=== PATIENT | male | born 1970 | race Caucasian/White ===

== ENCOUNTER 2018-06-26 21:37 | Inpatient (IN) | payer OTHER ==
[2018-06-26] MEDS ORDERED: NACL 0.9% 3 ML SYG IV (23:30)
[2018-06-26] MEDS ORDERED: ONDANSETRON 4 MG INJ IV (23:30)
[2018-06-27] MEDS: SOD CHLORIDE 0.9% 1,000 ML IV ×3 (00:18→20:59)
[2018-06-27] MEDS ORDERED: LORAZEPAM 2 MG INJ IV (00:30)
[2018-06-27 01:08] LABS: ADD MAN DIFF? NO
[2018-06-27 01:11] LABS: BASOPHILS % 0.4 % (0.0-2.0); EOSINOPHILS # 0.2 10^3/ul (0.0-0.5); EOSINOPHILS % 1.9 % (0.0-7.0); HEMOGLOBIN 12.3 g/dl (14.0-18.0); LYMPHOCYTES # 1.8 10^3/ul (0.8-2.9); LYMPHOCYTES % 19.3 % (15.0-51.0); MEAN CORPUSCULAR HEMOGLOBIN 28.9 pg (29.0-33.0); MEAN CORPUSCULAR HGB CONC 33.2 g/dl (32.0-37.0); MEAN CORPUSCULAR VOLUME 87.1 fl (82.0-101.0); MEAN PLATELET VOLUME 9.5 fl (7.4-10.4); MONOCYTE # 1.3 10^3/ul (0.3-0.9); MONOCYTES % 13.5 % (0.0-11.0); NEUTROPHIL # 6.1 10^3/ul (1.6-7.5); NEUTROPHILS % 64.6 % (39.0-77.0); PLATELET COUNT 243 10^3/UL (140-415); RED BLOOD COUNT 4.25 10^6/ul (4.70-6.10); RED CELL DISTRIBUTION WIDTH 14.1 % (11.5-14.5)
[2018-06-27 01:11] LABS: WHITE BLOOD COUNT 9.4 10^3/ul (4.8-10.8)
[2018-06-27 01:26] LABS: HEMOGLOBIN A1C 5.1 % (0-5.9)
[2018-06-27 01:27] LABS: LACTIC ACID 0.8 mmol/L (0.5-2.0)
[2018-06-27 01:29] LABS: ALANINE AMINOTRANSFERASE 42 IU/L (13-69); ALBUMIN 4.6 g/dl (3.3-4.9); ALBUMIN/GLOBULIN RATIO 1.53; ALKALINE PHOSPHATASE 85 IU/L (42-121); ANION GAP 12 (5-13); ASPARTATE AMINO TRANSFERASE 59 IU/L (15-46); BILIRUBIN,INDIRECT 0.7 mg/dl (0-1.1); BILIRUBIN,TOTAL 0.7 mg/dl (0.2-1.3); BLOOD UREA NITROGEN 11 mg/dl (7-20); CALCIUM 9.6 mg/dl (8.4-10.2); CARBON DIOXIDE 25 mmol/L (21-31); CHLORIDE 102 mmol/L (97-110); CREATININE 0.51 mg/dl (0.61-1.24); Estimated GFR > 60 mL/min (>60); GLUCOSE 98 mg/dl (70-220); POTASSIUM 4.1 mmol/L (3.5-5.1); SODIUM 139 mmol/L (135-144); TOTAL PROTEIN 7.6 g/dl (6.1-8.1)
[2018-06-27] MEDS ORDERED: HEPARIN 5,000 UNIT/0.5 ML VIAL ×3 (03:08→20:34)
[2018-06-27] MEDS: NICOTINE (14 MG/24 HR) PATCH TRANSDERM ×2 (03:19→08:23)
[2018-06-27] MEDS: CHLORDIAZEPOXIDE 25 MG CAP PO ×4 (03:21→20:59)
[2018-06-27] MEDS: THIAMINE 200 MG INJ IM ×2 (03:21→08:22)
[2018-06-27] MEDS: HEPARIN 5,000 UNIT/1 ML VIAL SC ×4 (03:27→21:05)
[2018-06-27 03:43] LABS: LACTIC ACID 0.9 mmol/L (0.5-2.0)
[2018-06-27 05:51] LABS: ADD MAN DIFF? NO
[2018-06-27 06:04] LABS: BASOPHIL # 0.1 10^3/ul (0.0-0.1); BASOPHILS % 0.7 % (0.0-2.0); EOSINOPHILS # 0.1 10^3/ul (0.0-0.5); EOSINOPHILS % 1.7 % (0.0-7.0); HEMATOCRIT 38.6 % (42.0-52.0); HEMOGLOBIN 12.7 g/dl (14.0-18.0); LYMPHOCYTES # 1.7 10^3/ul (0.8-2.9); LYMPHOCYTES % 19.8 % (15.0-51.0); MEAN CORPUSCULAR HEMOGLOBIN 28.9 pg (29.0-33.0); MEAN CORPUSCULAR HGB CONC 32.9 g/dl (32.0-37.0); MEAN CORPUSCULAR VOLUME 87.7 fl (82.0-101.0); MEAN PLATELET VOLUME 10.2 fl (7.4-10.4); MONOCYTE # 1.2 10^3/ul (0.3-0.9); MONOCYTES % 13.9 % (0.0-11.0); NEUTROPHIL # 5.4 10^3/ul (1.6-7.5); NEUTROPHILS % 63.8 % (39.0-77.0); PLATELET COUNT 263 10^3/UL (140-415); RED CELL DISTRIBUTION WIDTH 14.2 % (11.5-14.5)
[2018-06-27 06:04] LABS: WHITE BLOOD COUNT 8.4 10^3/ul (4.8-10.8)
[2018-06-27 06:45] LABS: ALANINE AMINOTRANSFERASE 37 IU/L (13-69); ALBUMIN 4.7 g/dl (3.3-4.9); ALBUMIN/GLOBULIN RATIO 1.62; ALKALINE PHOSPHATASE 90 IU/L (42-121); ANION GAP 13 (5-13); ASPARTATE AMINO TRANSFERASE 66 IU/L (15-46); BILIRUBIN,INDIRECT 0.8 mg/dl (0-1.1); BILIRUBIN,TOTAL 0.8 mg/dl (0.2-1.3); BLOOD UREA NITROGEN 11 mg/dl (7-20); CALCIUM 9.7 mg/dl (8.4-10.2); CARBON DIOXIDE 26 mmol/L (21-31); CHLORIDE 103 mmol/L (97-110); CREATININE 0.54 mg/dl (0.61-1.24); Estimated GFR > 60 mL/min (>60); GLUCOSE 91 mg/dl (70-220); POTASSIUM 4.4 mmol/L (3.5-5.1); SODIUM 142 mmol/L (135-144); TOTAL PROTEIN 7.6 g/dl (6.1-8.1)
[2018-06-27] MEDS: ACETAMINOPHEN 325 MG TAB PO (09:46)
[2018-06-27] MEDS: SOD CHLORIDE 0.9% 100 ML (14:01)
[2018-06-27] MEDS: IOHEXOL 300MG/ML 150 ML BTL (14:02)
[2018-06-27] MEDS: FOLIC ACID 1 MG TAB PO (14:27)
[2018-06-27] MEDS: PIPER-TAZO 3.375 GM IV (PMX) 100 ML IVPB ×2 (14:27→20:59)
[2018-06-28] MEDS: CHLORDIAZEPOXIDE 25 MG CAP PO ×5 (00:07→21:50)
[2018-06-28 05:05] LABS: ADD MAN DIFF? NO
[2018-06-28 05:08] LABS: BASOPHIL # 0.1 10^3/ul (0.0-0.1); BASOPHILS % 0.5 % (0.0-2.0); EOSINOPHILS # 0.2 10^3/ul (0.0-0.5); EOSINOPHILS % 1.2 % (0.0-7.0); HEMATOCRIT 38.7 % (42.0-52.0); HEMOGLOBIN 12.5 g/dl (14.0-18.0); LYMPHOCYTES # 1.8 10^3/ul (0.8-2.9); LYMPHOCYTES % 13.8 % (15.0-51.0); MEAN CORPUSCULAR HEMOGLOBIN 28.7 pg (29.0-33.0); MEAN CORPUSCULAR HGB CONC 32.3 g/dl (32.0-37.0); MEAN PLATELET VOLUME 9.9 fl (7.4-10.4); MONOCYTE # 1.1 10^3/ul (0.3-0.9); MONOCYTES % 8.4 % (0.0-11.0); NEUTROPHIL # 9.7 10^3/ul (1.6-7.5); NEUTROPHILS % 75.7 % (39.0-77.0); PLATELET COUNT 253 10^3/UL (140-415); RED BLOOD COUNT 4.35 10^6/ul (4.70-6.10)
[2018-06-28 05:08] LABS: WHITE BLOOD COUNT 12.8 10^3/ul (4.8-10.8)
[2018-06-28] MEDS ORDERED: HEPARIN 5,000 UNIT/0.5 ML VIAL ×3 (05:26→21:44)
[2018-06-28] MEDS: PIPER-TAZO 3.375 GM IV (PMX) 100 ML IVPB ×3 (05:40→21:50)
[2018-06-28 05:48] LABS: ANION GAP 10 (5-13); BLOOD UREA NITROGEN 5 mg/dl (7-20); CALCIUM 9.1 mg/dl (8.4-10.2); CARBON DIOXIDE 28 mmol/L (21-31); CHLORIDE 103 mmol/L (97-110); Estimated GFR > 60 mL/min (>60); GLUCOSE 101 mg/dl (70-220); POTASSIUM 3.8 mmol/L (3.5-5.1); SODIUM 141 mmol/L (135-144)
[2018-06-28] MEDS: HEPARIN 5,000 UNIT/1 ML VIAL SC ×3 (05:54→21:51)
[2018-06-28] MEDS: SOD CHLORIDE 0.9% 1,000 ML IV ×2 (06:21→15:24)
[2018-06-28] MEDS: FOLIC ACID 1 MG TAB PO (08:29)
[2018-06-28] MEDS: NICOTINE (14 MG/24 HR) PATCH TRANSDERM (08:30)
[2018-06-28] MEDS: THIAMINE 200 MG INJ IM (10:07)
[2018-06-29] MEDS ORDERED: CHLORDIAZEPOXIDE 25 MG CAP PO (00:30)
[2018-06-29] MEDS: SOD CHLORIDE 0.9% 1,000 ML IV ×3 (02:44→21:26)
[2018-06-29] MEDS ORDERED: HEPARIN 5,000 UNIT/0.5 ML VIAL ×3 (05:12→21:14)
[2018-06-29] MEDS: PIPER-TAZO 3.375 GM IV (PMX) 100 ML IVPB ×3 (05:29→21:26)
[2018-06-29] MEDS: HEPARIN 5,000 UNIT/1 ML VIAL SC ×3 (05:40→21:37)
[2018-06-29] MEDS: FOLIC ACID 1 MG TAB PO (08:34)
[2018-06-29] MEDS: CHLORDIAZEPOXIDE 25 MG CAP PO ×3 (08:34→21:26)
[2018-06-29] MEDS: NICOTINE (14 MG/24 HR) PATCH TRANSDERM (08:34)
[2018-06-29] MEDS: THIAMINE 200 MG INJ IM (10:00)
[2018-06-30] MEDS: morphine 2 MG INJ IV (01:43)
[2018-06-30] MEDS ORDERED: HEPARIN 5,000 UNIT/0.5 ML VIAL ×3 (05:01→21:08)
[2018-06-30] MEDS: PIPER-TAZO 3.375 GM IV (PMX) 100 ML IVPB ×3 (05:31→21:22)
[2018-06-30] MEDS: HEPARIN 5,000 UNIT/1 ML VIAL SC ×3 (05:55→21:24)
[2018-06-30] MEDS: SOD CHLORIDE 0.9% 1,000 ML IV ×3 (06:25→19:02)
[2018-06-30] MEDS: FOLIC ACID 1 MG TAB PO (09:54)
[2018-06-30] MEDS: NICOTINE (14 MG/24 HR) PATCH TRANSDERM (09:54)
[2018-06-30] MEDS: ACETAMINOPHEN 325 MG TAB PO ×2 (09:58→21:29)
[2018-06-30] MEDS: THIAMINE 200 MG INJ IM (12:20)
[2018-07-01] MEDS: SOD CHLORIDE 0.9% 1,000 ML IV ×4 (03:14→23:08)
[2018-07-01] MEDS ORDERED: HEPARIN 5,000 UNIT/0.5 ML VIAL (05:16)
[2018-07-01] MEDS: PIPER-TAZO 3.375 GM IV (PMX) 100 ML IVPB ×3 (05:29→21:21)
[2018-07-01] MEDS: HEPARIN 5,000 UNIT/1 ML VIAL SC (05:31)
[2018-07-01 05:32] LABS: ADD MAN DIFF? NO
[2018-07-01 05:51] LABS: BASOPHIL # 0.1 10^3/ul (0.0-0.1); BASOPHILS % 0.7 % (0.0-2.0); EOSINOPHILS # 0.2 10^3/ul (0.0-0.5); EOSINOPHILS % 2.1 % (0.0-7.0); HEMATOCRIT 37.5 % (42.0-52.0); HEMOGLOBIN 11.9 g/dl (14.0-18.0); LYMPHOCYTES # 1.7 10^3/ul (0.8-2.9); LYMPHOCYTES % 21.7 % (15.0-51.0); MEAN CORPUSCULAR HEMOGLOBIN 28.7 pg (29.0-33.0); MEAN CORPUSCULAR HGB CONC 31.7 g/dl (32.0-37.0); MEAN CORPUSCULAR VOLUME 90.4 fl (82.0-101.0); MEAN PLATELET VOLUME 10.4 fl (7.4-10.4); MONOCYTE # 1.2 10^3/ul (0.3-0.9); MONOCYTES % 16.1 % (0.0-11.0); NEUTROPHIL # 4.5 10^3/ul (1.6-7.5); PLATELET COUNT 268 10^3/UL (140-415); RED BLOOD COUNT 4.15 10^6/ul (4.70-6.10); RED CELL DISTRIBUTION WIDTH 14.1 % (11.5-14.5)
[2018-07-01 05:51] LABS: WHITE BLOOD COUNT 7.6 10^3/ul (4.8-10.8)
[2018-07-01 06:41] LABS: Estimated GFR > 60 mL/min (>60)
[2018-07-01 07:03] LABS: ANION GAP 7 (5-13); BLOOD UREA NITROGEN 10 mg/dl (7-20); CALCIUM 9.4 mg/dl (8.4-10.2); CARBON DIOXIDE 29 mmol/L (21-31); CHLORIDE 106 mmol/L (97-110); CREATININE 0.68 mg/dl (0.61-1.24); GLUCOSE 96 mg/dl (70-220); POTASSIUM 4.9 mmol/L (3.5-5.1); SODIUM 142 mmol/L (135-144)
[2018-07-01] MEDS: FOLIC ACID 1 MG TAB PO ×2 (08:32→09:19)
[2018-07-01 09:17] LABS: INR 0.98; PROTIME 13.1 Sec (11.9-14.9)
[2018-07-01 09:19] LABS: PARTIAL THROMBOPLASTIN TIME 45.1 Sec (23.0-35.0)
[2018-07-01] MEDS: NICOTINE (14 MG/24 HR) PATCH TRANSDERM (09:19)
[2018-07-01] MEDS: THIAMINE 200 MG INJ IM (10:29)
[2018-07-01] MEDS: ACETAMINOPHEN 325 MG TAB PO ×2 (14:02→20:39)
[2018-07-02] MEDS: PIPER-TAZO 3.375 GM IV (PMX) 100 ML IVPB ×3 (05:41→21:55)
[2018-07-02] MEDS: FOLIC ACID 1 MG TAB PO (08:41)
[2018-07-02] MEDS: NICOTINE (14 MG/24 HR) PATCH TRANSDERM (08:41)
[2018-07-02] MEDS: SOD CHLORIDE 0.9% 1,000 ML IV ×2 (08:42→19:30)
[2018-07-02] MEDS: ARTIFICIAL TEARS 15 ML OPH BOTH EYES ×2 (14:36→20:44)
[2018-07-02] MEDS: ACETAMINOPHEN 325 MG TAB PO (20:43)
[2018-07-03] MEDS: SOD CHLORIDE 0.9% 1,000 ML IV ×3 (05:03→17:33)
[2018-07-03] MEDS: PIPER-TAZO 3.375 GM IV (PMX) 100 ML IVPB (05:31)
[2018-07-03] MEDS: morphine LIQ (10 MG/5 ML) CUP PO ×2 (05:34→19:46)
[2018-07-03] MEDS: FOLIC ACID 1 MG TAB PO (08:13)
[2018-07-03] MEDS: ARTIFICIAL TEARS 15 ML OPH BOTH EYES ×3 (08:13→19:46)
[2018-07-03] MEDS: NICOTINE (14 MG/24 HR) PATCH TRANSDERM (08:13)
[2018-07-03] MEDS ORDERED: NEOMYC/POLYMYX/BACIT/HC 15 GM OINT TOP (14:00)
[2018-07-03] MEDS: NEOMYCIN TOP ×2 (15:09→19:47)
[2018-07-03] MEDS: POLYMYXIN B TOP ×2 (15:09→19:47)
[2018-07-03] MEDS: HYDROCORTISONE TOP ×2 (15:09→19:47)
[2018-07-04] MEDS: SOD CHLORIDE 0.9% 1,000 ML IV ×3 (02:36→21:28)
[2018-07-04] MEDS: POLYMYXIN B TOP ×2 (08:48→21:22)
[2018-07-04] MEDS: HYDROCORTISONE TOP ×2 (08:48→21:22)
[2018-07-04] MEDS: NEOMYCIN TOP ×2 (08:48→21:22)
[2018-07-04] MEDS: NICOTINE (14 MG/24 HR) PATCH TRANSDERM (08:49)
[2018-07-04] MEDS: FOLIC ACID 1 MG TAB PO (08:49)
[2018-07-04] MEDS: ARTIFICIAL TEARS 15 ML OPH BOTH EYES ×3 (08:49→21:22)
[2018-07-04] MEDS: morphine LIQ (10 MG/5 ML) CUP PO (10:27)
[2018-07-05] MEDS: SOD CHLORIDE 0.9% 1,000 ML IV ×3 (07:24→20:56)
[2018-07-05] MEDS: ARTIFICIAL TEARS 15 ML OPH BOTH EYES ×4 (08:19→20:30)
[2018-07-05] MEDS: FOLIC ACID 1 MG TAB PO (08:19)
[2018-07-05] MEDS: NICOTINE (14 MG/24 HR) PATCH TRANSDERM (08:20)
[2018-07-05] MEDS: morphine LIQ (10 MG/5 ML) CUP PO ×3 (08:20→20:30)
[2018-07-05] MEDS: HYDROCORTISONE TOP ×2 (08:22→20:30)
[2018-07-05] MEDS: NEOMYCIN TOP ×2 (08:22→20:30)
[2018-07-05] MEDS: POLYMYXIN B TOP ×2 (08:22→20:30)
[2018-07-05] MEDS: LIDOCAINE 1% (MPF) 5 ML VIAL ×2 (13:33→14:42)
[2018-07-06] MEDS: morphine LIQ (10 MG/5 ML) CUP PO (01:39)
[2018-07-06] MEDS: SOD CHLORIDE 0.9% 1,000 ML IV (08:18)
[2018-07-06] MEDS: NICOTINE (14 MG/24 HR) PATCH TRANSDERM (08:24)
[2018-07-06] MEDS: FOLIC ACID 1 MG TAB PO (08:24)
[2018-07-06] MEDS: ARTIFICIAL TEARS 15 ML OPH BOTH EYES (08:25)
[2018-07-06] MEDS: POLYMYXIN B TOP (08:30)
[2018-07-06] MEDS: NEOMYCIN TOP (08:30)
[2018-07-06] MEDS: HYDROCORTISONE TOP (08:30)
== END 2018-07-06 12:30 | disposition home or self-care (01) | DRG 804 ==
LOC: PP2 06-30 15:14 → 6WM 21:37
PROVIDERS: Internal Medicine
PROC: 07B13ZX Excision of Right Neck Lymphatic, Percutaneous Approach, Diagnostic (ICD-10-PCS; principal; 2018-07-01)
PROC: 07B13ZX Excision of Right Neck Lymphatic, Percutaneous Approach, Diagnostic (ICD-10-PCS; 2018-07-05)
DX: R59.9 Enlarged lymph nodes, unspecified (principal); F10.20 Alcohol dependence, uncomplicated; Z87.891 Personal history of nicotine dependence
CPT/HCPCS: 70491; 76536; 76942; 80048; 80053; 82607; 82746; 83036; 83605; 83735; 84443; 85025; 85610; 85730; 88104; 88307